=== PATIENT | female | born 1975 | race Caucasian/White ===

== ENCOUNTER 2017-05-29 13:55 | Emergency (ER) | payer OTHER ==
[2017-05-29 14:09] VITALS: BP 140/67
--- NOTE | 2017-05-29 14:33 | UC ---
Dental HPI - HPI Summary HPI Summary: Pt presents with dental pain to right lower jaw. She tells me that she knows she has "bad teeth" and many broken teeth. She is very afraid of dentists, but knows she needs to address this problem. For the last 2 days she has had right lower jaw pain, but yesterday developed swelling and increased pain. Today swelling is even worse. She is able to open her mouth, eat, and drink but all with significant pain. Denies fever, chills, sore throat, or recent illness. - History of Current Complaint Chief Complaint: UCDentalProblem Stated Complaint: JAW SWELLING Time Seen by Provider: 05/29/17 14:32 Hx Obtained From: Patient Hx Last Menstrual Period: 05/10/17 Onset/Duration: Gradual Onset Severity: Severe Pain Intensity: 10 Pain Scale Used: 0-10 Numeric Aggravating Factor(s): Heat, Cold, Chewing Alleviating Factor(s): Nothing - Allergies/Home Medications Allergies/Adverse Reactions: Allergies Allergy/AdvReac Type Severity Reaction Status Date / Time meperidine [From Demerol] Allergy Vomiting Verified 05/29/17 14:09 procaine [From Novocain] Allergy Rash And Verified 05/29/17 14:09 Itching Home Medications: Home Medications Ascorbic Acid TAB* [Vitamin C TAB*] 500 mg PO DAILY 05/29/17 [History Confirmed 05/29/17] Ibuprofen TAB* [Motrin TAB* 800 MG] 400 mg PO Q8H PRN 05/29/17 [History Confirmed 05/29/17] PMH/Surg Hx/FS Hx/Imm Hx - Surgical History Surgical History: Yes Surgery Procedure, Year, and Place: miscarraiges with D&C. SPINAL SURGERY - Family History Known Family History: Positive: Unknown - Social History Occupation: Employed Full-time Lives: With Family Alcohol Use: Occasionally Substance Use Type: Marijuana Substance Use Comment - Amount & Last Used: occasional Smoking Status (MU): Light Every Day Tobacco Smoker Type: Cigarettes Amount Used/How Often: 4-5 sig/day Length of Time of Smoking/Using Tobacco: 15 years - Immunization History Most Recent Tetanus Shot: unknown Review of Systems Constitutional: Negative Skin: Negative ENT: Dental Pain Respiratory: Negative Cardiovascular: Negative Neurological: Negative Psychological: Negative All Other Systems Reviewed And Are Negative: Yes Physical Exam Triage Information Reviewed: Yes Appearance: Well-Appearing, No Pain Distress, Obese Vital Signs: Initial Vital Signs Temp 98.4 F 05/29/17 14:02 Pulse 85 05/29/17 14:02 Resp 16 05/29/17 14:02 BP 140/67 05/29/17 14:02 Pulse Ox 97 05/29/17 14:02 Vital Signs Reviewed: Yes ENT: Positive: Pharynx normal, Uvula midline. Negative: Pharyngeal erythema, Nasal congestion, Nasal drainage, Tonsillar swelling, Tonsillar exudate, Hoarse voice, Sinus tenderness Dental: Positive: Percussion Tenderness @ - Tooth 19, Gross Decay/Caries @ - Diffuse, Dental Fracture @ - Diffuse, Abscess @ - Tooth 19, Other: - Moderate edema right lower jaw. Negative: Bleeding Neck: Positive: Supple Respiratory: Positive: Lungs clear, Normal breath sounds, No respiratory distress Cardiovascular: Positive: RRR, No Murmur, Pulses Normal Neurological: Positive: Alert Psychological: Positive: Age Appropriate Behavior Skin: Negative: rashes Dental Complaint Course/Dx - Course Course Of Treatment: Tooth 19 abscess - Differential Dx/Diagnosis Provider Diagnoses: Tooth 19 abscess Discharge - Discharge Plan Condition: Stable Disposition: HOME Prescriptions: Chlorhexidine MW 0.12% 473ML* [Peridex Mouth Wash 0.12%] 15 ml MT BID #473 ml Clindamycin HCl 300 mg PO TID #30 capsule Patient Education Materials: Dental Abscess (ED) Referrals: Jerrica Carpenter MD [Primary Care Provider] - Additional Instructions: If you develop a fever, shortness of breath, chest pain, new or worsening symptoms - please call your PCP or go to the ED. Your blood pressure was high at todays visit. Please see your primary provider within 4 weeks for recheck and re-evaluation. 1) Please schedule a follow up appointment with a dentist MARK. 2) If your symptoms persist greater than 48 hours or worsen despite oral antibiotic therapy - please go directly to the ED.
== END 2017-05-29 15:01 | disposition home or self-care (01) ==
LOC: UCEAST 13:55
DX: K04.7 Periapical abscess without sinus (principal); F17.210 Nicotine dependence, cigarettes, uncomplicated
CPT/HCPCS: 99212; G0463

== ENCOUNTER 2017-05-30 20:22 | Emergency (ER) | payer OTHER ==
[2017-05-30] MEDS ORDERED: oxyCODONE/Acetamin 5/325 MG* TAB PO ONE (21:25)
[2017-05-30] MEDS ORDERED: Lidocaine 1%* 5 ML VIAL INJ ONE (21:28)
--- NOTE | 2017-05-30 22:12 | ED ---
Throat Pain/Nasal Congestion - HPI Summary HPI Summary: 41 female presents with dental pain for the past 4 days. She states the area of her right lower cheek has been swelling more. She denies any fevers. She denies any chest pain or SOB. She denies any difficulty swallowing. States the pain for 10 out of 10. She has been using Tylenol and ibuprofen wihtout relief. She has been taking clindamycin has been taking for a day. She does not have a dentist. She states pain is causing her not to eat. She has history of cavities and dental fractures. - History of Current Complaint Chief Complaint: EDDentalPain Time Seen by Provider: 05/30/17 20:58 - Allergies/Home Medications Allergies/Adverse Reactions: Allergies Allergy/AdvReac Type Severity Reaction Status Date / Time meperidine [From Demerol] Allergy Vomiting Verified 05/29/17 14:09 procaine [From Novocain] Allergy Rash And Verified 05/29/17 14:09 Itching PMH/Surg Hx/FS Hx/Imm Hx Endocrine/Hematology History: Denies: Hx Diabetes, Hx Thyroid Disease Cardiovascular History: Denies: Hx Hypertension Respiratory History: Denies: Hx Asthma, Hx Chronic Obstructive Pulmonary Disease (COPD) GI History: Denies: Hx Ulcer - Surgical History Surgery Procedure, Year, and Place: [facility] [place] with D&C. SPINAL SURGERY Infectious Disease History: No Infectious Disease History: Denies: Hx Clostridium Difficile, Hx Hepatitis, Hx Human Immunodeficiency Virus (HIV), Hx of Known/Suspected MRSA, Hx Shingles, Hx Tuberculosis, History Other Infectious Disease, Traveled Outside the in Last 30 Days - Family History Known Family History: Positive: Unknown - Social History Alcohol Use: Occasionally Hx Substance Use: No Substance Use Type: Reports: Marijuana Substance Use Comment - Amount & Last Used: occasional Smoking Status (MU): Light Every Day Tobacco Smoker Type: Cigarettes Amount Used/How Often: 4-5 sig/day Length of Time of Smoking/Using Tobacco: 15 years Review of Systems Negative: Fever Positive: Dental Pain Negative: Chest Pain Negative: Shortness Of Breath All Other Systems Reviewed And Are Negative: Yes Physical Exam Triage Information Reviewed: Yes Vital Signs On Initial Exam: Initial Vitals Temp Pulse Resp BP Pulse Ox 97.4 F 77 16 133/66 97 05/30/17 20:25 05/30/17 20:25 05/30/17 20:25 05/30/17 20:25 05/30/17 20:25 Vital Signs Reviewed: Yes Appearance: Positive: Well-Appearing Skin: Positive: Warm, Dry Head/Face: Positive: Normal Head/Face Inspection, Other - swelling to right side of jaw Eyes: Positive: Normal, EOMI, ALIA, Conjunctiva Clear ENT: Positive: Pharynx normal, TMs normal Dental: Positive: Gross Decay/Caries @ - throught, Abscess @ - right lower jaw Neck: Positive: Enlarged Nodes @ - cervical lymph nodes Respiratory/Lung Sounds: Positive: Clear to Auscultation, Breath Sounds Present Cardiovascular: Positive: Normal, RRR Musculoskeletal: Positive: Normal Neurological: Positive: Normal Psychiatric: Positive: Normal Procedures - Incision and Drainage Site: right lower jaw Anesthesia: Local Instrument(s): Scalpel Diagnostics - Vital Signs Vital Signs Temp Pulse Resp BP Pulse Ox 05/30/17 21:42 16 05/30/17 20:25 97.4 F 77 16 133/66 97 - Laboratory Lab Statement: Any lab studies that have been ordered have been reviewed, and results considered in the medical decision making process. EENT Course/Dx - Course Course Of Treatment: 41 female presents with dental pain for the past 4 days. She states the area of her right lower cheek has been swelling more. She denies any fevers. She denies any chest pain or SOB. She denies any difficulty swallowing. States the pain for 10 out of 10. She has been using Tylenol and ibuprofen wihtout relief. She has been taking clindamycin has been taking for a day. She does not have a dentist. She states pain is causing her not to eat. She has history of cavities and dental fractures. on exam has abscess of right lower jaw. attempted I&D and no drainage. will have continue clindamycin and gave pain medication. patient understand and agrees with plan. - Differential Diagnoses Differential Diagnoses: Dental Abscess, Dental Caries, Fractured Tooth - Diagnoses Provider Diagnoses: Dental abscess Discharge - Discharge Plan Condition: Good Disposition: HOME Prescriptions: oxyCODONE/Acetamin 5/325 MG* [Percocet 5/325 TAB*] 1 tab PO Q6H PRN #12 tab MDD 4 PRN Reason: Pain Patient Education Materials: Dental Abscess (ED) Referrals: Jerrica Carpenter MD [Primary Care Provider] - Additional Instructions: Use ibuprofen every 6 hours and narcotic for break through pain at night Take antibiotic as prescribed Avoid hard, crunchy food until seen by dentist Follow up with dentist as soon as possible Return to ED if develop fever, shortness of breath, pain with eye movement or swelling around eye
[2017-05-30 22:47] VITALS: BP 116/64
== END 2017-05-30 22:46 | disposition home or self-care (01) ==
LOC: ED 20:22
DX: K04.7 Periapical abscess without sinus (principal); K08.89 Other specified disorders of teeth and supporting structures; F17.210 Nicotine dependence, cigarettes, uncomplicated
CPT/HCPCS: 96374; 99282; A9270-GY

== ENCOUNTER 2018-01-15 09:43 | Emergency (ER) | payer OTHER ==
--- NOTE | 2018-01-15 10:33 | RAD ---
HISTORY: SOB with chest pain COMPARISONS: January 23, 2015 VIEWS: 4: Frontal dual-energy and lateral views of the chest. FINDINGS: CARDIOMEDIASTINAL SILHOUETTE: The cardiomediastinal silhouette is normal. YONAS: The yonas are normal. PLEURA: The costophrenic angles are sharp. No pleural abnormalities are noted. LUNG PARENCHYMA: The lungs are clear. ABDOMEN: The upper abdomen is clear. There is no subphrenic gas. BONES AND SOFT TISSUES: No bone or soft tissue abnormalities are noted. OTHER: None. IMPRESSION: NO ACTIVE CARDIOPULMONARY DISEASE.
[2018-01-15] MEDS ORDERED: Ketorolac INJ* 30 MG/ML 1 ML VIAL IV PUSH ONE (10:39)
[2018-01-15 10:45] LABS: ABS Basophils 0.1 10^3/ul (0-0.2); ABS Eosinophils 0.1 10^3/ul (0-0.6); ABS Monocytes 0.5 10^3/ul (0-0.8); ABS Neutrophils 7.6 10^3/ul (1.5-7.7); ABS Nucleated RBC 0 10^3/ul; Eosinophil % 0.9 % (0-6); Hematocrit 43 % (35-47); Hemoglobin 14.7 g/dl (12.0-16.0); Lymphocyte % 19.7 % (25-47); Mean Corpuscular HGB Conc 34 g/dl (31-36); Mean Corpuscular Hemoglobin 30 pg (27-31); Mean Corpuscular Volume 90 fL (80-97); Mean Platelet Volume 8.1 um3 (7.4-10.4); Nucleated Red Blood Cells % 0; Platelet Count 315 10^3/ul (150-450); Red Blood Count 4.84 10^6/ul (4.00-5.40); Red Cell Distribution Width 13 % (10.5-15); White Blood Count 10.4 10^3/ul (3.5-10.8)
[2018-01-15 10:58] LABS: EGFR Non-African American 89.3 (>60)
[2018-01-15 11:44] VITALS: BP 114/68
--- NOTE | 2018-01-15 14:09 | ED ---
Shortness of Breath - HPI Summary HPI Summary: Patient is an otherwise healthy 42-year-old female presenting to the ED with acute onset SOB starting this morning. She states she felt a sharp pain to her left side upon wakening and immediately developed SOB. She states the pain wraps around from her anterior rib cage to her posterior rib cage. She states SOB is worse with taking big deep breaths. She states it feels muscular, however has not been taking any ibuprofen for relief. She has not used anything else for relief. She denies any fevers, sweats, chills. She denies any cardiac history and takes no medications. She denies any diaphoresis. She denies any calf pain, recent travel, OCP use. Patient is a smoker. - History of Current Complaint Chief Complaint: EDChestWallPain Time Seen by Provider: 01/15/18 09:56 Hx Obtained From: Patient Onset/Duration: Sudden Onset Timing: Constant Current Severity: Moderate Dyspnea At: Rest Associated Signs & Symptoms: Negative - Risk Factors Pulmonary Embolism: Negative Cardiac: Negative Pseudomonas: Negative Tuberculosis: Negative - Allergy/Home Medications Allergies/Adverse Reactions: Allergies Allergy/AdvReac Type Severity Reaction Status Date / Time meperidine [From Demerol] Allergy Vomiting Verified 01/15/18 09:52 procaine [From Novocain] Allergy Rash And Verified 01/15/18 09:52 Itching PMH/Surg Hx/FS Hx/Imm Hx Previously Healthy: Yes Endocrine/Hematology History: Denies: Hx Diabetes, Hx Thyroid Disease Cardiovascular History: Denies: Hx Hypertension Respiratory History: Denies: Hx Asthma, Hx Chronic Obstructive Pulmonary Disease (COPD) GI History: Denies: Hx Ulcer - Surgical History Surgery Procedure, Year, and Place: miscarraiges with D&C. SPINAL SURGERY - Immunization History Hx Pertussis Vaccination: No Immunizations Up to Date: Yes Infectious Disease History: No Infectious Disease History: Denies: Hx Clostridium Difficile, Hx Hepatitis, Hx Human Immunodeficiency Virus (HIV), Hx of Known/Suspected MRSA, Hx Shingles, Hx Tuberculosis, History Other Infectious Disease, Traveled Outside the [place] in Last 30 Days - Family History Known Family History: Positive: Unknown - Social History Occupation: Employed Full-time Lives: With Family Alcohol Use: Occasionally Hx Substance Use: No Substance Use Type: Reports: Marijuana Substance Use Comment - Amount & Last Used: occasional Hx Tobacco Use: Yes Smoking Status (MU): Light Every Day Tobacco Smoker Type: Cigarettes Amount Used/How Often: 4-5 sig/day Length of Time of Smoking/Using Tobacco: 15 years Review of Systems Constitutional: Negative Negative: Fever, Chills, Fatigue, Skin Diaphoresis Positive: Chest Pain Positive: Shortness Of Breath. Negative: Cough Negative: Abdominal Pain, Vomiting, Diarrhea, Nausea Genitourinary: Negative Positive: no symptoms reported, see HPI Positive: Myalgia Skin: Negative Neurological: Negative All Other Systems Reviewed And Are Negative: Yes Physical Exam Triage Information Reviewed: Yes Vital Signs On Initial Exam: Initial Vitals Temp Pulse Resp BP Pulse Ox 98 F 86 22 128/82 96 01/15/18 09:52 01/15/18 09:52 01/15/18 09:52 01/15/18 09:52 01/15/18 09:52 Vital Signs Reviewed: Yes Appearance: Positive: Well-Appearing, Well-Nourished Skin: Positive: Warm, Skin Color Reflects Adequate Perfusion Head/Face: Positive: Normal Head/Face Inspection Eyes: Positive: EOMI, ALIA, Conjunctiva Clear Neck: Positive: Supple, No Lymphadenopathy Respiratory/Lung Sounds: Positive: Clear to Auscultation, Breath Sounds Present Cardiovascular: Positive: RRR, Pulses are Symmetrical in both Upper and Lower Extremities. Negative: Leg Edema Left, Leg Edema Right Musculoskeletal: Positive: Pain @ - right side body pain radiating to the posterior back - worse on palpation Neurological: Positive: Sensory/Motor Intact, Alert, Oriented to Person Place, Time, CN Intact II-III, Speech Normal Psychiatric: Positive: Affect/Mood Appropriate AVPU Assessment: Alert Diagnostics - Vital Signs Vital Signs Temp Pulse Resp BP Pulse Ox 01/15/18 11:57 97.8 F 67 16 114/68 97 01/15/18 11:43 78 18 114/68 95 01/15/18 09:52 98 F 86 22 128/82 96 - Laboratory Lab Results: Lab Results 01/15/18 01/15/18 01/15/18 Range/Units 10:32 10:32 10:32 WBC 10.4 (3.5-10.8) 10^3/ul RBC 4.84 (4.00-5.40) 10^6/ul Hgb 14.7 (12.0-16.0) g/dl Hct 43 (35-47) % MCV 90 (80-97) fL MCH 30 (27-31) pg MCHC 34 (31-36) g/dl RDW 13 (10.5-15) % Plt Count 315 (150-450) 10^3/ul MPV 8.1 (7.4-10.4) um3 Neut % (Auto) 73.5 (38-83) % Lymph % (Auto) 19.7 L (25-47) % [place] % (Auto) 5.3 (0-7) % Eos % (Auto) 0.9 (0-6) % Baso % (Auto) 0.6 (0-2) % Absolute Neuts (auto) 7.6 (1.5-7.7) 10^3/ul Absolute Lymphs (auto) 2.0 (1.0-4.8) 10^3/ul Absolute Monos (auto) 0.5 (0-0.8) 10^3/ul Absolute Eos (auto) 0.1 (0-0.6) 10^3/ul Absolute Basos (auto) 0.1 (0-0.2) 10^3/ul Absolute Nucleated RBC 0 10^3/ul Nucleated RBC % 0 D-Dimer, Quantitative (Less Than 230) ng/mL Sodium 137 (135-145) mmol/L Potassium 4.1 (3.5-5.0) mmol/L Chloride 104 (101-111) mmol/L Carbon Dioxide 27 (22-32) mmol/L Anion Gap 6 (2-11) mmol/L BUN 8 (6-24) mg/dL Creatinine 0.72 (0.51-0.95) mg/dL Est GFR ( Amer) 108.0 (>60) Est GFR (Non-Af Amer) 89.3 (>60) BUN/Creatinine Ratio 11.1 (8-20) Glucose 143 H (70-100) mg/dL Lactic Acid 1.4 (0.5-2.0) mmol/L Calcium 9.5 (8.6-10.3) mg/dL Total Bilirubin 0.50 (0.2-1.0) mg/dL AST 11 L (13-39) U/L ALT 9 (7-52) U/L Alkaline Phosphatase 51 (34-104) U/L Total Protein 7.3 (6.4-8.9) g/dL Albumin 4.4 (3.2-5.2) g/dL Globulin 2.9 (2-4) g/dL Albumin/Globulin Ratio 1.5 (1-3) 01/15/ Range/Units 10:32 WBC (3.5-10.8) 10^3/ul RBC (4.00-5.40) 10^6/ul Hgb (12.0-16.0) g/dl Hct (35-47) % MCV (80-97) fL MCH (27-31) pg MCHC (31-36) g/dl RDW (10.5-15) % Plt Count (150-450) 10^3/ul MPV (7.4-10.4) um3 Neut % (Auto) (38-83) % Lymph % (Auto) (25-47) % [place] % (Auto) (0-7) % Eos % (Auto) (0-6) % Baso % (Auto) (0-2) % Absolute Neuts (auto) (1.5-7.7) 10^3/ul Absolute Lymphs (auto) (1.0-4.8) 10^3/ul Absolute Monos (auto) (0-0.8) 10^3/ul Absolute Eos (auto) (0-0.6) 10^3/ul Absolute Basos (auto) (0-0.2) 10^3/ul Absolute Nucleated RBC 10^3/ul Nucleated RBC % D-Dimer, Quantitative < 200 (Less Than 230) ng/mL Sodium (135-145) mmol/L Potassium (3.5-5.0) mmol/L Chloride (101-111) mmol/L Carbon Dioxide (22-32) mmol/L Anion Gap (2-11) mmol/L BUN (6-24) mg/dL Creatinine (0.51-0.95) mg/dL Est GFR ( Amer) (>60) Est GFR (Non-Af Amer) (>60) BUN/Creatinine Ratio (8-20) Glucose (70-100) mg/dL Lactic Acid (0.5-2.0) mmol/L Calcium (8.6-10.3) mg/dL Total Bilirubin (0.2-1.0) mg/dL AST (13-39) U/L ALT (7-52) U/L Alkaline Phosphatase (34-104) U/L Total Protein (6.4-8.9) g/dL Albumin (3.2-5.2) g/dL Globulin (2-4) g/dL Albumin/Globulin Ratio (1-3) Result Diagrams: 01/15/18 10:32 01/15/18 10:32 Lab Statement: Any lab studies that have been ordered have been reviewed, and results considered in the medical decision making process. Course/Dx - Course Course Of Treatment: During the course of treatment, the patient's evaluated for left-sided pain. There is pain on palpation to the left side of the ribs and the left posterior back. Lungs CTA. RRR. Breath sounds equal on both sides. Denies any injury or trauma. She is given Toradol 30 mg IV on arrival. Improves with Toradol. D-dimer as well as labs obtained and are all WNL. I have a low suspicion for a PE and PERC score negative. She is encouraged toradol and ibuprofen but she states she prefers prednisone as this has worked for her in the past. - Diagnoses Differential Diagnosis/HQI/PQRI: Positive: Chest Wall Pain Provider Diagnoses: Chest wall pain Discharge - Sign-Out/Discharge Documenting (check all that apply): Patient Departure - Discharge Plan Condition: Stable Disposition: HOME Prescriptions: Cyclobenzaprine TAB* [Flexeril TAB*] 10 mg PO BID PRN #10 tab PRN Reason: Spasms predniSONE TAB* [Deltasone TAB*] 50 mg PO DAILY #5 tab MDD 1 Patient Education Materials: Muscle Spasm (ED) Referrals: Jerrica Carpenter MD [Primary Care Provider] - Additional Instructions: flexeril twice daily as needed for muscle spasms prednisone once daily in the morning x 5 days Moist heat to the area may help - Billing Disposition and Condition Condition: STABLE Disposition: Home
== END 2018-01-15 11:57 | disposition home or self-care (01) ==
LOC: ED 09:43
DX: R07.89 Other chest pain (principal); Z88.4 Allergy status to anesthetic agent; Z88.5 Allergy status to narcotic agent; F17.210 Nicotine dependence, cigarettes, uncomplicated
CPT/HCPCS: 36415; 71046; 80053; 83605; 85025; 85379; 93005; 96374; 99282; J1885

== ENCOUNTER 2018-05-17 08:42 | Emergency (ER) | payer OTHER ==
[2018-05-17 09:10] VITALS: BP 134/72
--- NOTE | 2018-05-17 10:40 | UC ---
Back Pain HPI - HPI Summary HPI Summary: Pt c/o gradual onset of worsening neck and back pain. Pt has a hx of bulging and herniated discs and has had surgical intervention for back "issues". Pt states that pain begins at C7 an dradiates dwon back, mostly on left side. Pt denies left side weakness or SALDANA or recent injury Pt states bilateral arms and legs will go numb with prolonged standing standing or sitting. No loss of bowel or bladder or saddle parasthesia - History of Current Complaint Chief Complaint: UCBackPain Stated Complaint: NECK /BACK PAIN Time Seen by Provider: 05/17/18 10:29 Hx Obtained From: Patient Hx Last Menstrual Period: 04/16/18 ?: No Onset/Duration: Gradual Onset, Lasting Days, Worse Since Timing: Constant Severity Initially: Mild Severity Currently: Moderate Pain Intensity: 6 Character: Dull, Aching, Throbbing, Stiffness Aggravating Factor(s): Movement, Lifting, Walking, Other - sitting Alleviating Factor(s): Rest, Position Associated Signs And Symptoms: Positive: Numbness, Tingling - Risk Factors AAA Risk Factors: Negative TAD Risk Factors: Negative Cauda Equina Risk Factors: Negative Epidural Abscess Risk Factors: Negative - Allergies/Home Medications Allergies/Adverse Reactions: Allergies Allergy/AdvReac Type Severity Reaction Status Date / Time meperidine [From Demerol] Allergy Vomiting Verified 05/17/18 11:08 procaine [From Novocain] Allergy Rash And Verified 05/17/18 11:08 Itching PMH/Surg Hx/FS Hx/Imm Hx Previously Healthy: Yes - Surgical History Surgical History: Yes Surgery Procedure, Year, and Place: miscarraiges with D&C. SPINAL SURGERY - Family History Known Family History: Positive: Cardiac Disease - Social History Occupation: Employed Full-time Lives: With Family Alcohol Use: Occasionally Substance Use Type: Marijuana Substance Use Comment - Amount & Last Used: occasional Smoking Status (MU): Light Every Day Tobacco Smoker Type: Cigarettes Amount Used/How Often: 4-5 sig/day Length of Time of Smoking/Using Tobacco: 15 years Have You Smoked in the Last Year: Yes - Immunization History Most Recent Tetanus Shot: unknown Review of Systems All Other Systems Reviewed And Are Negative: Yes Constitutional: Positive: Negative Skin: Positive: Negative Eyes: Positive: Negative ENT: Positive: Negative Respiratory: Positive: Negative Cardiovascular: Positive: Negative Gastrointestinal: Positive: Negative Motor: Positive: Negative Neurovascular: Positive: Negative Musculoskeletal: Positive: Myalgia Neurological: Positive: Paresthesia Psychological: Positive: Negative Is Patient Immunocompromised?: No Physical Exam Triage Information Reviewed: Yes Appearance: Pain Distress Vital Signs: Initial Vital Signs Temp 98 F 05/17/18 09:08 Pulse 72 05/17/18 09:08 Resp 16 05/17/18 09:08 BP 134/72 05/17/18 09:08 Pulse Ox 100 05/17/18 09:08 Vital Signs Reviewed: Yes Eye Exam: Normal, Other - PERRLA ENT Exam: Normal Dental Exam: Normal Neck: Positive: Tenderness @ - C7 Respiratory Exam: Normal Cardiovascular Exam: Normal Musculoskeletal Exam: Normal Neurological Exam: Normal, Other - unable to test lower extremeity reflexes as pt was unable to be in position to do so. Psychological Exam: Normal, Other - Pt in no acute distress when examined. Pt able to ambualte and perform simple movements without c/o pain or loss of function observed. Skin Exam: Normal Back Pain Course/Dx - Course Course Of Treatment: I explained my exam findings and my concern for her preexisitng and current condition. Pt was recommended to go dierctly to ER for further evaluation and testing. Pt verbalized understanding and agreed to plan of care. I discussed my plan of care with Dr. Ayala and she agreed with my paln of care. - Differential Dx/Diagnosis Differential Diagnosis/HQI/PQRI: Cauda Equina Syndrome, Herniated Disc Provider Diagnosis: Back pain, Back pain associated with peripheral numbness Discharge - Sign-Out/Discharge Documenting (check all that apply): Patient Departure All imaging exams completed and their final reports reviewed: No Studies - Discharge Plan Condition: Stable Disposition: HOME-RECOMMEND TO ED Patient Education Materials: Paresthesia (ED), Back Pain (ED) Referrals: Jerrica Carpenter MD [Primary Care Provider] - Additional Instructions: PLEASE GO DIRECTLY TO THE EMERGENCY ROOM - Billing Disposition and Condition Condition: STABLE Disposition: Home-Recommend to ED
== END 2018-05-17 10:50 | disposition home health service (06) ==
LOC: UCEAST 08:42
DX: M54.9 Dorsalgia, unspecified (principal); R20.0 Anesthesia of skin; F17.210 Nicotine dependence, cigarettes, uncomplicated; Z88.1 Allergy status to other antibiotic agents; Z88.5 Allergy status to narcotic agent